=== PATIENT | female | born 1935 | race Asian ===

== ENCOUNTER 2016-08-04 11:10 | Emergency (ER) | payer OTHER, MEDICAID ==
[~2016-08-04] VITALS: Ht 154.9 cm; Wt 74.8 kg
[2016-08-04 11:10] VITALS: BP 160/64; PULSE 77; RESP 18; TEMP 97; O2SAT 96
--- NOTE | 2016-08-04 11:15 | NUR ---
ER at bedside examining patient.
--- NOTE | 2016-08-04 11:15 | NUR ---
BIB BLS, pt was walking on the street with walker, tripped and fell. hit back of head. no KO.left elbow pain and swelling,right perez pain. ROM all intact except left elbow. CMS intact.
--- NOTE | 2016-08-04 11:15 | NUR ---
Placed in room 2 . Placed on color repairer, blood pressure machine and pulse oximeter. To gown for exam. Side rails up.
--- NOTE | 2016-08-04 11:26 | NUR ---
pt is fully awake,alert,no distress noted.
[2016-08-04 11:29] LABS: BASOPHILS % (AUTO) 0.4 % (0.0-2.0); EOSINOPHILS # (AUTO) 0.3 K/uL (0.0-0.4); HEMATOCRIT 26.3 % (36-48); HEMOGLOBIN 8.5 g/dL (12.0-16.0); LYMPHOCYTES # (AUTO) 0.6 K/uL (1.0-5.5); LYMPHOCYTES % (AUTO) 11.3 % (20.5-51.5); MEAN CORPUSCULAR HEMOGLOBIN 29 pg (27-31); MEAN CORPUSCULAR HGB CONC 32 % (32-36); MEAN CORPUSCULAR VOLUME 89 fL (79.0-98.0); MONOCYTES # (AUTO) 0.4 K/uL (0.0-1.0); MONOCYTES % (AUTO) 6.8 % (1.7-9.3); NEUTROPHILS # (AUTO) 4.2 K/uL (1.8-7.7); NEUTROPHILS % (AUTO) 76.5 % (40.0-70.0); PLATELET COUNT (AUTO) 169 K/uL (130-430); RED BLOOD CELL COUNT(AUTO) 2.96 MIL/uL (4.2-6.2); RED CELL DISTRIBUTION WIDTH 13.2 % (9.0-15.0); WHITE BLOOD COUNT (AUTO) 5.5 K/uL (4.8-10.8)
--- NOTE | 2016-08-04 11:40 | NUR ---
jason done at bedside
[2016-08-04 11:42] LABS: INR 0.9 (0.8-1.2); PROTHROMBIN TIME 10.1 SECS (9.5-12.5)
[2016-08-04 11:48] LABS: ANION GAP 7 (5-15); CALCIUM 8.6 mg/dL (8.4-11.0); CHLORIDE 113 mmol/L (98-107); GLUCOSE 78 mg/dL (70-99); POTASSIUM 4.9 mmol/L (3.5-5.1); SODIUM SERUM 142 mmol/L (136-145); UREA NITROGEN, BLOOD 43 mg/dL (8-21)
[2016-08-04 11:53] LABS: ALANINE AMINOTRANSFERASE 20 U/L (12-78); ALBUMIN 3.5 g/dL (3.4-4.8); ASPARTATE AMINOTRANSFERASE 17 U/L (10-37); TOTAL BILIRUBIN 0.3 mg/dL (0.0-1.0); TOTAL PROTEIN, SERUM 7.4 g/dL (6.4-8.3)
--- NOTE | 2016-08-04 12:09 | NUR ---
c/o pain on top of her head. Dr mendez informed.
--- NOTE | 2016-08-04 12:14 | NUR ---
# 20 gauge angiocath placed to . Use of asceptic technique. Opsite placed over site. Flushed with 10 cc of normal saline. No evidence of infiltration noted. Patient tolerated well.
--- NOTE | 2016-08-04 12:15 | NUR ---
informed pt need to be transported to [facility] for CT scan of head due to ct scan machince is down.verbal consent obtained. s ambulance arranged by charge nurse MINGO villalobos 20 mins.
--- NOTE | 2016-08-04 12:31 | NUR ---
left arm sling applied. pt tolerated well.
--- NOTE | 2016-08-04 12:42 | NUR ---
transported to [facility] for ct scan of head by [facility] ambulance.
--- NOTE | 2016-08-04 13:55 | NUR ---
Pt returned back from [facility].ct scan done. no change of condition.
[2016-08-04 14:09] VITALS: O2SAT 100
[2016-08-04 16:24] VITALS: BP 141/76; PULSE 76; RESP 17; TEMP 98
--- NOTE | 2016-08-04 16:24 | NUR ---
Patient given written and verbal discharge instructions and verbalizes understanding. ER MD discussed with patient the results and treatment provided.Patient in stable condition. ID arm band removed. IV catheter removed intact and dressing applied, no active bleeding. Rx of 0 given. Patient educated on pain management and to follow up with PMD. Pain Scale . Opportunity for questions provided and answered.
== END 2016-08-04 16:24 | disposition home or self-care (01) ==
LOC: SED 11:10
DX: S50.02XA Contusion of left elbow, initial encounter (principal); S80.11XA Contusion of right lower leg, initial encounter; W01.0XXA Fall on same level from slipping, tripping and stumbling without subsequent striking against object, initial encounter; Y93.01 Activity, walking, marching and hiking; Y99.8 Other external cause status; Y92.89 Other specified places as the place of occurrence of the external cause
CPT/HCPCS: 36415; 70450-TC; 80053; 85025; 85610-TC; 85730-TC; 93005; 99285